=== PATIENT | male | born 1965 | race Two or more races ===

== ENCOUNTER 2025-02-14 05:33 | Emergency (ER) | payer MEDICAID, SELFPAY ==
[2025-02-14 05:34] VITALS: BP 143/88; PULSE 88; RESP 18; TEMP 36.5; O2SAT 99; BMI 21.6
--- NOTE | 2025-02-14 05:42 | PD.EDMALE ---
ED Male Genitalurinary RME/HPI General Chief complaint: Urogenital-Male Stated complaint: UNABLE TO URINATE, CATHETER REMOVED YESTERDAY Time Seen by Provider: 02/14/25 05:39 Arrival date/time: 02/14/25 05:33 59M presents to ED with unable to urinate. Patient had Navarro cath removed yesterday at [place]. Limitations: no limitations Related Data Home Medications ?Medication ?Instructions ?Recorded ?Confirmed lisinopril 40 mg tablet 40 ml PO QDAY #0 tabs 01/11/15 Allergies Allergy/AdvReac Type Severity Reaction Status Date / Time No Known Allergies Allergy Unknown Uncoded 01/11/15 12:05 Review of Systems Review of Systems Systems Reviewed: All systems reviewed, normal except as documented Genitourinary Genitourinary: Reports as per HPI and Reports difficulty urinating Past Medical History Social History SMOKING STATUS: Never smoker ED Exam General Limitations: Present no limitations General appearance: Present alert and in no apparent distress Head Head exam: Present atraumatic Neck Neck exam: Present normal inspection, full ROM and trachea midline Chest Chest inspection: Present normal inspection and symmetric chest wall rise Neurological Exam Neurological exam: Present alert and oriented X3 Psychiatric Psychiatric exam: Present normal affect and normal mood Skin Skin exam: Present warm, dry, intact and normal color Course Quality Measures none Orders Category Date Time Status Catheter [Urinary Catheter] QS Care 02/14/25 05:39 Active Navarro to Leg Bag Routine Care 02/14/25 05:39 Ordered Lidocaine Jelly 2% Urojet [Xylocaine Jelly 2% Urojet] Med 02/14/25 05:39 Discontinued See Dose Instructions TOP X1 ONE Vital Signs Vital signs: Vital Signs Temperature 97.7 F 02/14/25 05:34 Pulse Rate 88 02/14/25 05:34 Respiratory Rate 18 02/14/25 05:34 Blood Pressure 143/88 H 02/14/25 05:34 Pulse Oximetry (%) 99 02/14/25 05:34 Oxygen Delivery Method Room Air 02/14/25 05:34 O2 at 99% on RA and WNLs Urogenital - Male MDM Narrative MDM Narrative:: 59M presents to ED with unable to urinate. Patient had Navarro cath removed yesterday at [place]. Physical exam reveals uncomfortable male. Patient also has a colostomy bag. Patient is afebrile and alert. Navarro replaced and urine flowed freely. Patient data External records reviewed:: None Clinical information provided by:: patient Social determinants that could affect healthcare access:: none Patient has the following chronic illnesses:: unknown How is presenting disease/condition affected by chronic disease/condition?: uneffected by Evaluation data The following diagnostics were reviewed and interpreted by me:: other (specify) (none) Lab and/or radiology exams considered but not ordered:: not ordered Interpretation Summary: n/a Medications / Prescriptions Medications or Prescriptions considered but not ordered:: ordered Medication administrations:: Medication Administration History Discontinued Medications Lidocaine HCl (Lidocaine Jelly 2% (Urojet) 10 Ml Tube) 0 ml TOP X1 ONE Stop: 02/14/25 05:40 above Consultations Consultation(s) initiated? (list below): No Diagnosis Urogenital Male Differential Diagnosis: urinary tract infection, priapism, urethritis, epididymitis, genital herpes simplex, prostatitis, acute retention of urine and inguinal hernia Most likely diagnosis given after review of the tests above:: acute retention of urine Admission Indicated Admission indicated?: not indicated Admission Request Was there a request for admission?: No Disposition Plan Disposition Plan: Discharge Discharge Attestation Discharge Attestation: The patient and all family members were given an opportunity to ask questions and understood the discharge instructions. Discharge instructions specifically effects, indications for sooner follow up or return to the emergency department, and the expected course of current diagnosis. Patient condition: Stable Discharge Plan Plan Patient Disposition: HOME (Self Care) Discharge Disposition comment: Stable Prescriptions/Referrals Prescriptions/Med Rec: No Action lisinopril 40 MG tablet 40 ml PO QDAY Qty: 0 Problem List Clinical Impression: Acute retention of urine Patient/Caregiver Discharge Instructions Education Materials: ED Urinary Retention, Male Additional Instructions: Please follow-up with PCP within 24-48 hours and return immediately if symptoms worsen. Print Language: [place] Stand Alone Forms: Patient Portal Info Letter RON/LORNA Supervising Physician VALENTINO Supervising Physician: Dr. Delgadillo
[2025-02-14] MEDS: LIDOCAINE JELLY 2% (Urojet) 10 ML TUBE TOP (06:05)
[2025-02-14 06:08] VITALS: RESP 14
== END 2025-02-14 06:21 | disposition home or self-care (01) ==
LOC: SERX 06:10
PROVIDERS: Emergency Provider Emergency Medicine; PCP Family Medicine
DX: R33.9 Retention of urine, unspecified (principal)
CPT/HCPCS: 51702; 99284; A4314

== ENCOUNTER 2025-03-30 12:47 | Emergency (ER) | payer MEDICAID, SELFPAY ==
[2025-03-30 12:48] VITALS: BMI 21.6
[2025-03-30 13:15] VITALS: BP 140/70; PULSE 78; RESP 18; TEMP 36.9; O2SAT 99
--- NOTE | 2025-03-30 13:18 | XR_ITS ---
Examination: CT abdomen with intravenous contrast CT pelvis with intravenous contrast 2-D coronal reconstructions 2-D sagittal reconstructions Date and time of exam: 03/30/2025 at 4:06 p.m. INDICATION: Abdominal pain. Recent colostomy reversal. Chronic Navarro catheter in position. Reported worsening penile pain for the past few days. CTDI: vol (mGy) 11.2 DLP: (mGycm) 424 Technique: Multiple axial sections of the abdomen and pelvis have been obtained. 64 slice high-resolution scanner used. 3 mm axial sections have been obtained, post intravenous injection of 60 mL of Isovue-370 2-D sagittal, coronal reconstructions obtained. Low dose protocols were performed. One or more of the following dose reduction techniques were used; automated exposure control, adjustment of the mA and/or KV according to patient size, use of iterative reconstruction technique. Findings: Lower thorax: No airspace consolidation or pleural effusion. Mild linear scarlike density identified in the right lower lobe. Mild enlargement of the pulmonary trunk may be due to underlying pulmonary hypertension. LAD calcification noted. No significant pericardial effusion. Abdomen/pelvis: No hepatosplenomegaly. Hepatic steatosis. Dominant benign-appearing right hepatic lobe cyst measures 5.7 cm AP. Multiple very small subcentimeter hypodense foci are scattered about the liver that are too small to characterize but most likely represent cysts. No calcified gallstones. No bile duct obstruction, main pancreatic duct dilatation, acute pancreatitis or mass. No adrenal or renal masses. No renal or ureteral tract calculi or hydronephrosis. The urinary bladder is catheterized and partially decompressed. Mild air noted in the bladder lumen and very small calculi layer dependently in the bladder lumen as well. Bladder wall thickening and perivesicular fat stranding are present, likely related to acute cystitis. Enlarged prostate with severe BPH and elevation of the bladder base as well. Equivocal slight edematous thickening of the penis but otherwise no abscess is observed. Suggestion of a very small spermatic cord lipoma if not fat-containing inguinal hernia. Small postoperative seroma identified in the right lower quadrant subcutaneous fat, measuring approximate 4.5 x 1.0 cm in transaxial dimensions (axial image 135). Postoperative findings consistent with the clinical history recent colostomy reversal are present. The proximal and distal anastomoses appear intact. Minimal fluid is visualized in the pelvis, right side greater than left, not amenable to drainage at this time. Scattered colonic diverticula noted without evidence for acute diverticulitis. No evidence for diffuse colitis. No evidence for acute enteritis or bowel obstruction. No lymphadenopathy by size criteria. Normal caliber abdominal aorta. Scattered aortobiiliac calcific plaque identified. Very small right inguinal hernia containing predominantly fat without acute complication. Multifocal degenerative changes with otherwise no evidence for recent fracture or aggressive lesion. IMPRESSION: Acute cystitis. Multiple tiny calculi layer dependently in the bladder lumen. Prostatomegaly with severe BPH. Recent colostomy reversal. No evidence for bowel obstruction or abscess at this time. Ancillary findings as above.
--- NOTE | 2025-03-30 13:19 | EDRME_ITS ---
Rapid Medical Screening Exam [facility] Arrival date/time: 03/30/25 12:47 60-year-old male with a history of hypertension, presents to the emergency room with a chief complaint of lower abdominal pain and pubic pain x 2 days. The patient had a colostomy which was removed on 03/20/2025 and currently has a Navarro catheter in place but the patient does not know any of his medical history. I have greeted and performed a focused initial assessment of this patient. A comprehensive ED assessment and evaluation of the patient, analysis of all test results, and completion of the medical decision making process will be conducted by additional ED providers. 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
--- NOTE | 2025-03-30 13:32 | PD.EDMALE ---
ED Male Genitalurinary RME/HPI General Chief complaint: Urogenital-Male Stated complaint: I THINK i HAVE A UTI, HAS CHAUDHRY IN Time Seen by Provider: 03/30/25 13:07 Arrival date/time: 03/30/25 12:47 60-year-old male patient with recent history of colostomy reversal, on chronic Chaudhry catheter, came in for evaluation regarding penile pain. Onset of symptoms for the last few days is worsening penile pain, associated with perineal pain, severity moderate. Patient also noted dysuria. Patient also noted fecal like material on the Chaudhry catheter tubing. Also complained of abdominal discomfort severity mild. Denies any fever no vomiting no other complaints noted. RME / HPI RME / HPI Narrative: 03/30/25 12:47 60-year-old male with a history of hypertension, presents to the emergency room with a chief complaint of lower abdominal pain and pubic pain x 2 days. The patient had a colostomy which was removed on 03/20/2025 and currently has a Chaudhry catheter in place but the patient does not know any of his medical history. I have greeted and performed a focused initial assessment of this patient. A comprehensive ED assessment and evaluation of the patient, analysis of all test results, and completion of the medical decision making process will be conducted by additional ED providers. Exam: Lower abdominal tenderness with palpation Dysuria Clear bilateral lung sounds Impression: Abdominal fistula/abdominal pain/gastroenteritis/urinary tract infection Related Data Home Medications ?Medication ?Instructions ?Recorded ?Confirmed lisinopril 40 mg tablet 40 ml PO QDAY #0 tabs 01/11/15 Previous Rx's ?Medication ?Instructions ?Recorded cefuroxime axetil 500 mg tablet 500 mg PO BID #14 tabs 03/30/25 Allergies Allergy/AdvReac Type Severity Reaction Status Date / Time No Known Allergies Allergy Verified 03/30/25 12:51 Review of Systems Review of Systems Narrative Review of Systems: Review of system reviewed and within normal limits except mentioned in HPI ED Exam Narrative Physical exam: VITAL SIGNS: Reviewed. GENERAL APPEARANCE: Alert and interactive, follows commands, no acute distress, HEAD AND FACE: Non-traumatic. ENT: PERRL, pink conjunctivitis, eyelid no trauma, Mucous membrane moist. NECK: Supple, nontender, no nuchal rigidity. CHEST: No tenderness, no crepitus, no paradoxical movement, no retractions. LUNGS: Clear, well ventilated, symmetric, no rales, no wheezing, no ronchi, no stridor, good breath sounds bilaterally. HEART: Regular rate, regular rhythm, no murmur, no gallops. ABDOMEN: Soft, positive bowel sounds, nondistended, no guarding, nontender, no rebound, no masses, mild tenderness to the colostomy site, status post reversal healing surgical site no redness RECTAL: Deferred. GENITAL: Chaudhry catheter intact, with fecal material noted on the Chaudhry catheter tubing, penile tenderness NEUROLOGICAL: Gross motor function intact sensory function intact, Appropriate for age. MUSCULOSKELETAL: low back nontender, full range of motion. EXTREMITIES: Nontender, full range of motion. SKIN: Color pink, dry, no rash, no lacerations, no abrasions, no contusions. LYMPHATICS: Deferred. Course Quality Measures none Orders Category Date Time Status CT Screening NOW Care 03/30/25 13:19 Completed Chaudhry [Urinary Catheter, Remove] ONCE Care 03/30/25 13:31 Completed Chaudhry [Urinary Catheter] QS Care 03/30/25 13:[address] abdomen pelvis w con Stat Exams 03/30/25 13:18 Completed CBC Stat Lab 03/30/25 13:46 Completed CMP [Comprehensive Metabolic Panel] Stat Lab 03/30/25 13:46 Completed Lipase Stat Lab 03/30/25 13:46 Completed UA [Urinalysis] Stat Lab 03/30/25 15:22 Completed Urine Culture Stat Lab 03/30/25 15:22 Received Ketorolac Inj [Toradol Inj] Med 03/30/25 13:31 Discontinued 30 mg IM X1 ONE Lidocaine Jelly 2% Urojet [Xylocaine Jelly 2% Urojet] Med 03/30/25 13:31 Discontinued See Dose Instructions TOP X1 ONE cefTRIAXone [Rocephin] 1,000 mg Med 03/30/25 16:46 Discontinued Lidocaine 1% 20 ml [Xylocaine 1% 20 ML] 2.1 ml IM X1 Vital Signs Vital signs: Vital Signs Temperature 98.5 F 03/30/25 13:15 Pulse Rate 78 03/30/25 13:15 Respiratory Rate 18 03/30/25 13:15 Blood Pressure 140/70 H 03/30/25 13:15 Pulse Oximetry (%) 99 03/30/25 13:15 Oxygen Delivery Method Room Air 03/30/25 13:15 Urogenital - Male [facility] Narrative [facility] Narrative:: 60-year-old male patient with recent history of colostomy reversal, on chronic Chaudhry catheter, came in for evaluation regarding penile pain. Onset of symptoms for the last few days is worsening penile pain, associated with perineal pain, severity moderate. Patient also noted dysuria. Patient also noted fecal like material on the Chaudhry catheter tubing. Also complained of abdominal discomfort severity mild. Denies any fever no vomiting no other complaints noted. Patient's workup all came back unremarkable except for UTI. CT scan of the abdomen and pelvis also came back with no acute pathology except for BPH results discussed with the patient. Chaudhry catheter was removed and placed a new Chaudhry catheter without any complication. Patient was given ceftriaxone IM. Stable for discharge home Patient data External records reviewed:: None Clinical information provided by:: patient Social determinants that could affect healthcare access:: none Patient has the following chronic illnesses:: History of BPH history of BPH How is presenting disease/condition affected by chronic disease/condition?: exacerbated by Evaluation data The following diagnostics were reviewed and interpreted by me:: lab results and radiology exam(s) Lab and/or radiology exams considered but not ordered:: None Interpretation Summary: See MDM Medications / Prescriptions Medications or Prescriptions considered but not ordered:: None Medication administrations:: Medication Administration History Discontinued Medications Ceftriaxone Sodium 1,000 mg/ (Lidocaine HCl 2.1 ml) 0 mg IM X1 ONE Stop: 03/30/25 16:47 Last Admin: 03/30/25 17:25 Dose: 1,000 mg Documented By: BRENNON Ketorolac Tromethamine (Ketorolac Inj 30 Mg/Ml Vial) 30 mg IM X1 ONE Stop: 03/30/25 13:32 Last Admin: 03/30/25 14:40 Dose: 30 mg Documented By: BRENNON Lidocaine HCl (Lidocaine Jelly 2% (Urojet) 10 Ml Tube) 0 ml TOP X1 ONE Stop: 03/30/25 13:32 Last Admin: 03/30/25 14:42 Dose: 10 ml Documented By: BRENNON Toradol, ceftriaxone Uro-Jet Consultations Consultation(s) initiated? (list below): No Diagnosis Urogenital Male Differential Diagnosis: urinary tract infection, urethritis and epididymitis Most likely diagnosis given after review of the tests above:: UTI, Chaudhry catheter change Admission Indicated Admission indicated?: not indicated Admission Request Was there a request for admission?: No Disposition Plan Disposition Plan: Discharge Discharge Attestation Discharge Attestation: The patient was given an opportunity to ask questions and understood the discharge instructions. Discharge instructions specifically effects, indications for sooner follow up or return to the emergency department, and the expected course of current diagnosis. Patient condition: Stable Discharge Plan Plan Patient Disposition: HOME (Self Care) Discharge Disposition comment: Stable Prescriptions/Referrals Prescriptions/Med Rec: New cefuroxime axetil 500 mg tablet 500 mg PO BID Qty: 14 0RF No Action lisinopril 40 MG tablet 40 ml PO QDAY Qty: 0 Referrals: Dread Tejada MD [Primary Care Provider, Family Practice] - In 1 week Problem List Clinical Impression: Urinary tract infection, Urinary catheter (Chaudhry) change required Patient/Caregiver Discharge Instructions Discharge Activity: activity as tolerated Education Materials: Anatomy of the Male Urinary Tract Additional Instructions: Thank you for the opportunity for serving you today. You are stable for discharged . You are advised to: Follow-up with your PCP in 1 to 2 days Return to ED for worsening of symptoms Increase oral fluids Take medication as prescribed Print Language: Greenlandic Stand Alone Forms: Radha Award Info., Patient Portal Info Letter PA/LORNA Supervising Physician RON/LORNA Supervising Physician: MD Keith
[2025-03-30 14:05] LABS: Basophils # (Auto) 0.1 Thou/mm3 (0.0-0.2); Basophils % (Auto) 1 % (0-2.5); Eosinophils # (Auto) 0.2 Thou/mm3 (0.0-0.5); Eosinophils % (Auto) 2 % (0-10); Hematocrit 38.8 % (41.0-53.0); Hemoglobin 13.1 g/dL (13.5-16.0); Immature Granulocytes Auto 0.01 Thou/mm3 (0.00-0.00); Lymphocytes # (Auto) 1.9 Thou/mm3 (1.0-4.8); Lymphocytes % (Auto) 24 % (10-50); Mean Corpuscular HGB Conc 33.8 g/dl (31.0-37.0); Mean Corpuscular Hemoglobin 31.3 pg (25.0-35.0); Mean Corpuscular Volume 93 fL (80-100); Monocytes # (Auto) 0.5 Thou/mm3 (0.0-0.8); Monocytes % (Auto) 7 % (0-12); Neutrophils # (Auto) 5.1 Thou/mm3 (1.8-7.7); Neutrophils % (Auto) 66 % (37-80); Nucleated Red Blood Cell # 0.00 Thou/mm3 (0.00-0.00); Nucleated Red Blood Cell % 0 /100 WBC (0); Platelet Count 324 Thou/mm3 (140-440); RDW Standard Deviation 42.4 fL (35.1-43.9); Red Blood Count 4.19 Miln/mm3 (4.50-5.90); White Blood Count 7.7 Thou/mm3 (3.8-10.6)
[2025-03-30 14:23] LABS: Alanine Aminotransferase 15 U/L (10-49); Albumin, Serum 4.2 gm/dL (3.4-4.8); Albumin/Globulin Ratio 1.8 (1.2-2.2); Alkaline Phosphatase 60 U/L (46-116); Anion Gap 9 (7-16); Aspartate Amino Transferase 21 U/L (0-34); BUN/Creatinine Ratio 8 Ratio (12-20); Bilirubin,Total 0.8 mg/dL (0.3-1.2); Blood Urea Nitrogen 9 mg/dL (9-23); Calcium 8.9 mg/dL (8.3-10.6); Calcium (Corrected) 8.9 mg/dL (8.5-10.1); Carbon Dioxide 27.1 mMol/L (20.0-31.0); Chloride 107 mMol/L (98-107); Creatinine (Component) 1.1 mg/dL (0.6-1.3); Estimated Creatinine Clearance 58.1 mL/min (>60); Globulin 2.3 gm/dL (2.3-3.5); Glucose 95 mg/dL (74-106); Lipase 28 U/L (12-53); Osmolality,Calculated 283 (275-295); Potassium 3.5 mMol/L (3.4-5.1); Sodium 143 mMol/L (136-145); Total Protein 6.5 gm/dL (5.7-8.2); eGFR > 60 See Note
[2025-03-30] MEDS: KETOROLAC INJ 30 MG/ML VIAL IM (14:40)
[2025-03-30] MEDS: LIDOCAINE JELLY 2% (Urojet) 10 ML TUBE TOP (14:42)
[2025-03-30 15:28] LABS: Collection Type, Urine Clean Catch; Squamous Epithelial Cell,Urine 0 /hpf (0-5)
[2025-03-30 16:05] LABS: Bilirubin,Urine Negative (Negative); Blood,Urine 3+ (Negative); Clarity,Urine Clear (Clear/Hazy); Color,Urine Colorless (Lt Yel-Yel); Glucose, Urine Negative (Negative); Ketones,Urine Trace (Negative); Leukocyte Esterase,Urine Positive (Negative); Nitrite,Urine Negative (Negative); PH,Urine 6.5 (5.0-7.0); Protein,Urine Trace (Neg - Trace); RBC,Urine 6 /hpf (0-3); Specific Gravity,Urine 1.005 (1.001-1.035); Urobilinogen,Urine Negative mg/dL (0.0-1.0); WBC,Urine 20 /hpf (0-5)
[2025-03-30] MEDS: cefTRIAXone 1,000 MG, LIDOCAINE 1% 20 ML 2.1 ML IM (17:25)
[2025-03-30 18:30] VITALS: BP 128/72; PULSE 68; RESP 18; TEMP 36.6; O2SAT 98
== END 2025-03-30 18:31 | disposition home or self-care (01) ==
PROVIDERS: Emergency Provider Nurse Practitioner Family; PCP Family Medicine
DX: N39.0 Urinary tract infection, site not specified (principal); I10 Essential (primary) hypertension
CPT/HCPCS: 36415; 51702; 74177; 80053; 81001; 83690; 85025; 87086; 96372; 99283; A4314; A4649; J0696; J1885; J3490; Q9967